=== PATIENT | female | born 1995 | race Caucasian/White ===

== ENCOUNTER 2025-10-10 07:45 | Day surgery (SDC) | payer OTHER, SELFPAY ==
[2025-09-28 09:55] VITALS: BMI 22.8
[2025-10-10] VITALS (12 sets, daily range): BP systolic 105–127; BP diastolic 49–80; PULSE 62–115; RESP 12–20; TEMP 36.4–37; O2SAT 97–100
--- NOTE | 2025-10-10 08:18 | WPDANESEPPF ---
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 [facility] Social History Social History Smoking status: Never smoker Second hand tobacco smoke exposure: Yes Alcohol use details: social Substance use: current Substance use type: marijuana Other substance usage details: daily Living arrangements: with family Spiritual care concerns: No Anes - Eval Final PreProcedure Day of Procedure 10/10/25 08:18 Heart: regular rate and rhythm Lungs: clear to auscultation Airway: Mallampati scale class 1 Neurological: alert and oriented Last oral intake: >/= 8 hours ASA classification: II Anesthetic plan: proceed Anesthesia type and monitoring: general Results Review: All pre-operative results and documents have been reviewed as part of the pre-operative evaluation. Informed Consent: The patient's anesthetic plan and its attendant risks and benefits were discussed with the patient/family/POA. Questions were solicited and answers provided to the satisfaction of the patient/family/POA.
--- OUTSIDE RECORDS SUMMARY | 2025-10-10 08:46 | XMS_ITS | Encounter Summary ---
Author Organization [facility] Address [address] [place] [address] Care Team Providers Care District Associate Judge Name Role Phone Sophia Fermin MD Primary Care Provider [phone]- [phone] Encounter Details Date Type Department Care Team (Late st Contact Info) Description 08/21/2020 Ancillary Orders [facility] O[facility] [place] [address] [facility] [address] [place] [address] Rita Mendez MD [address] 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 Social History Tobacco Use Types Packs/Day Years Used Date Smoking Tobacco: Never Smokeless Tobacco: Never Alcohol Use Standard Drinks/Week Comments No 0 (1 standard drink = 0.6 oz pur e alcohol) Comments Yes Sex and Gender Information Value Date Recorded Sex Assigned at Not on file Legal Sex Female 6:26 AM FABRICATION ENGINEER Gender Identity Not on file Sexual Orientation Not on file Occupation Industry Job Start Date Job End Date Not on file Not on file Not on file Not on file COVID-19 Exposure Response Date Recorded In the last month, have you been in contact with someone who was confirmed or suspected to have Coronavirus / COVID-19? No / Unsure 08/23/2020 9:26 AM FABRICATION ENGINEER documented as of this encounter Plan of Treatment Not on file documented as of this encounter Results * US OB FOLLOW UP PER FETUS (09/25/2020 2:01 PM FABRICATION ENGINEER) Anatomical Region Laterality Modality Pelvis Ultrasound 09/25/2020 1:22 PM FABRICATION ENGINEER Impressions 09/25/2020 10:15 PM FABRICATION ENGINEER IMPRESSION Findings Comment Estimated weight is appropriate for gestational age Narrative 09/25/2020 10:15 PM FABRICATION ENGINEER [place] Follow [facility] Pat. Name: ANAY BALLARD Study Date: 09/25/2020 1:22pm Pat. NO: [id number] Referring MD: RITA MENDEZ Site: 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 Para 1 METHOD Transabdominal ultrasound examination Mckeon . Number of fetuses: 1. DATING LMP on: 01/11/2020 Cycle: regular cycle GA by LMP 36 w + 6 d DE by LMP: 10/17/2020 Ultrasound examination on: 09/25/2020 GA by U/S based upon: AC, BPD, EFW, Femur, HC GA by U/S 36 w + 0 d DE by U/S: 10/23/2020 Method of dating: Restore dating from previous exam Assigned: Dating performed on 08/23/2020, based on the LMP Assigned GA 36 w + 6 d Assigned DE: 10/17/2020 BIOMETRY Main Biometry: BPD 89.5 mm 36w 2d 46% Hadlock OFD 109.1 mm 36w 0d 35% Lata HC 314.6 mm 35w 2d 4% Hadlock AC 326.7 mm 36w 4d 56% Hadlock Femur 69.0 mm 35w 3d 15% Hadlock HC / AC 0.96 20% Nicolaides Weight Calculation: EFW 2,851 g 36w 1d 36% Hadlock EFW (lb,oz) 6 lb 5 oz EFW by Hadlock ([id number]) Head / Face / Neck Biometry: Cephalic index 0.82 54% Nicolaides Extremities / Bony Struc Biometry: FL / BPD 0.77 FL / HC 0.22 FL / AC 0.21 Other Structures Biometry: AF MVP 2.9 cm MELISSA 8.7 cm 9% Burt FHR 144 bpm GENERAL EVALUATION Cardiac activity present. FHR 144 bpm. Presentation cephalic. Placenta anterior. Amniotic fluid MVP 2.9 cm. MELISSA 8.7 cm. Q1 0.0 cm, Q2 2.9 cm, Q3 2.9 cm, Q4 2.9 cm. ANATOMY The following structures appear normal: 4-chamber view. Stomach: Fluid filled stomach identified. Kidneys: Kidneys appear normal bilaterally. Bladder: Fluid filled bladder identified. Gender: male. MATERNAL STRUCTURES Uterus Malformations: Urbano, previously described Procedure Note Jamal Holland II, MD - 09/25/2020 [place] Follow Up Pat. Name:Rudolph BALLARD Date:09/25/2020 1:22pm Pat. 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 Para 1 METHOD Transabdominal ultrasound examination Mckeon . Number of fetuses: 1. DATING LMP on:01/11/2020 Cycle:regular cycle GA by LMP36 w + 6 d DE by LMP:10/17/2020 Ultrasound examination on:09/25/2020 GA by U/S based upon:AC, BPD, EFW, Femur, HC GA by U/S36 w + 0 d DE by U/S:10/23/2020 Method of dating:Restore dating from previous exam Assigned:Dating performed on 08/23/2020, based on the LMP Assigned GA36 w + 6 d Assigned DE:10/17/2020 BIOMETRY Main Biometry: BPD 89.5 mm 36w 2d46% Hadlock OFD 109.1 mm 36w 0d35% Lata HC 314.6 mm 35w 2d 4% Hadlock AC 326.7 mm 36w 4d56% Hadlock Femur 69.0 mm 35w 3d15% Hadlock HC / AC 0.9620% Nicolaides Weight Calculation: EFW 2,851 g 36w 1d36% Hadlock EFW (lb,oz) 6 lb 5 oz EFW by Hadlock ([id number]) Head / Face / Neck Biometry: Cephalic index 0.8254% Nicolaides Extremities / Bony Struc Biometry: FL / BPD 0.77 FL / HC 0.22 FL / AC 0.21 Other Structures Biometry: AF MVP 2.9 cm MELISSA 8.7 cm 9% Burt FHR 144 bpm GENERAL EVALUATION Cardiac activity present. FHR 144 bpm. Presentation cephalic. Placenta anterior. Amniotic fluid MVP 2.9 cm. MELISSA 8.7 cm. Q1 0.0 cm, Q2 2.9 cm, Q3 2.9 cm, Q4 2.9 cm. ANATOMY The following structures appear normal: 4-chamber view. Stomach: Fluid filled stomach identified. Kidneys: Kidneys appear normal bilaterally. Bladder: Fluid filled bladder identified. Gender: male. 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
--- OUTSIDE RECORDS SUMMARY | 2025-10-10 08:46 | XMS_ITS | Encounter Summary ---
Author Organization [facility] Address [address] [place] [address] Care Team Providers Care Nurses' Association Counselor Name Role Phone Sophia Fermin MD Primary Care Provider Encounter Details Date Type Department Care Team (Latest Contact Info) Description 02/14/2003 Outpatient Historical [facility] [place] [address] [address] Andreas Diana MD [address] [address] DERMATITIS NOS (Primary Dx) Social History Tobacco Use Types Packs/Day Years Used Date Smoking Tobacco: Never Assessed Comments Unknown Sex and Gender Information Value Date Recorded Sex Assigned at Not on file Legal Sex Female 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
--- OUTSIDE RECORDS SUMMARY | 2025-10-10 08:46 | XMS_ITS | Encounter Summary ---
Author Organization [facility] Address [address] [place] [address] Care Team Providers Care Natural Gas Basis Trader Name Role Phone Sophia Fermin MD Primary Care Provider [phone]- [phone] Encounter Details Date Type Department Care Team (Latest Contact Info) Description 09/27/2004 Outpatient Historical [facility] [address] [address] Elana Collazo NP NO ADDRESS ON FILE VIRAL ENTERITIS NOS (Primary Dx) Social History Tobacco Use Types Packs/Day Years Used Date Smoking Tobacco: Never Assessed Comments Unknown Sex and Gender Information Value Date Recorded Sex Assigned at Not on file Legal Sex Female 6:26 AM TAX PREPARER Gender Identity Not on file Sexual Orientation Not on file documented as of this encounter Plan of Treatment Not on file documented as of this encounter Visit Diagnoses Diagnosis Intestinal infection due to other organism, not elsewhere classified- Primary documented in this encounter Care Teams Natural Gas Basis Trader Relationship Specialty Start Date End Date Sophia Fermin MD [address] [address] PCP - General Family Practice 12/01/13 documented as of this encounter
--- OUTSIDE RECORDS SUMMARY | 2025-10-10 08:46 | XMS_ITS | Clinical Summary ---
Author Organization [facility] Address [address] [facility] [address] [place] [address] Care Team Providers Care Digital Forensics Examiner Name Role Phone Sophia Fermin MD Primary Care Provider Allergies Active Allergy Reactions Criticality Noted Date Comments Cefadroxil Other (See Comments) 02/20/2010 Makes her hyper as a child Medications vit-iron fumarate-fa (KIT ) 28 mg iron- 800 mcg TabletIndications :Screening, , for malformation by ultrasound,Encoun ter for screening of mother Take 1 Tablet by mouth daily. Active OTHER Double electric breast pump. Use as directed. Dx: z39.1. 1 Device 8 Active Active Problems Problem Noted Date Diagnosed Date Indication for care or intervention in labor or delivery 10/04/2020 Overview (10/04/2020): Labor management (normal spontaneous vaginal delivery) 10/04 Nuchal cord with compression , delivered, current hospitalization 10/04/2020 Laceration of labia majora 10/04/2020 Overview (10/04/2020): Right labia- 1st degree Supervision of normal 03/23/2020 Overview (08/23/2020): Declined flu vaccine 08/23/2020 38 weeks gestation of 03/14/2020 Overview (03/14/2020): Uterus didelphis- preg in right horn Lump of left breast 03/14/2020 S/P laparoscopic surgery 06/26/2017 Uterus didelphys 02/10/2017 Overview (05/29/2020): preg is on the right Migraine 11/14/2011 Overview (02/06/2017): related to her menstrual cycle- when she was on ocp's Seasonal allergic rhinitis 03/08/2011 Menometrorrhagia 04/18/2010 Resolved Problems Problem Noted Date Diagnosed Date Resolved Date Supervision of high risk pre gnancy in first trimester 12/13/2019 02/24/2020 (spontaneous vaginal delivery) 04/26/2018 12/13/2019 Supervision of normal first 03/11/2018 12/13/2019 38 weeks gestation of 03/03/2018 12/13/2019 Anemia affecting in third trimester 03/03/20 18 12/13/2019 28 weeks gestation of 01/28/2018 02/19/2018 09/24/2017 01/28/2018 Bicornuate uterus affecting , antepartum 09/24/2017 12/30/2017 Overview (09/24/2017): Uterus didelphis- preg is on the right Screening, , for ma lformation by ultrasound 09/16/2017 12/13/2019 Encounter for screening of mother 09/16/2017 12/13/2019 Longitudinal vaginal septum 02/10/2017 04/13/2018 Contraceptive management 04/07/2012 Immunizations Immunization Administration Dates Next Due (ADACEL/BOOSTRIX)(10 YR UP) TDAP VACCINE, 0.5ML, IM 02/16/2018,03/07/2011 (M-M-R II/PRIORIX)(12 MO UP) MEASLES, MUMPS AND RUBELLA VIRUS VACCINE, 0.5 ML IM/SUBCUT 06/06/1999,06/18/1995 (TDVAX)(7 YRS UP) TETANUS AN D DIPHTHERIA TOXOIDS, ADSORBED (2 LF OF TETANUS TOXOID AND 2 LF OF DIPHTHERIA TOXOID), 0.5ML (PF), IM 05/09/2006 Dt Dtp Dtap Vaccine 06/06/1999, 6,1994,1993,1994 HIB, Unspecified Formulation 10/17/1995, 1994,1994,1993 Hepatitis B Vaccine 06/18/1995,1994,1993 IPV/OPV 06/06/1999, 5,1994,1993 Influenza Seasonal Unspecifi ed Formulation IM 08/11/2008 Family History Medical History Relation Name Comments Healthy Father Heart Disease Maternal Grandfather Hypertension Maternal Grandfather Other Maternal Grandmother rare mu scle disease Other Mother muscle disease Cancer Paternal Grandfather Breast Cancer Paternal Grandmother Colon Cancer Neg Hx Relation Name Status Comments Father Alive Maternal Grandfather Alive Maternal Grandmother Mother Alive Paternal Grandfather Paternal Grandmother Social History Tobacco Use Types Packs/Day Years Used Date Smoking Tobacco: Never Smokeless Tobacco: Never Alcohol Use Standard Drinks/Week Comments No 0 (1 standard drink = 0.6 oz pur e alcohol) Comments No Sex and Gender Information Value Date Recorded Sex Assigned at Not on file Legal Sex Female 6:26 AM TOOL DESIGN 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 Gender Identity Not on file Sexual Orientation Not on file Occupation Industry Job Start Date Job End Date Not on file Not on file Not on file Not on file Last Filed Vital Signs Vital Sign Reading Time Taken Comments Blood Pressure 100/80 11/14/2020 8:52 AM TOOL DESIGN DRAFTER Pulse 88 10/04/2020 5:31 PM TOOL DESIGN DRAFTER Temperature 36.2 C (97.1 F) 10/04/2020 5:31 PM TOOL DESIGN DRAFTER Respiratory Rate 16 10/04/2020 5:31 PM TOOL DESIGN DRAFTER Oxygen Saturation 98% 10/04/2020 5:31 PM TOOL DESIGN DRAFTER Inhaled Oxygen Concentration - - Weight 68.5 kg (151 lb) 11/14/2020 8:52 AM TOOL DESIGN DRAFTER Height 162.6 cm (5' 4) 11/14/2020 8:52 AM TOOL DESIGN DRAFTER Body Mass Index 25.92 11/14/2020 8:52 AM TOOL DESIGN DRAFTER Plan of Treatment Health Maintenance Due Date Last Done Comments HPV/Cotest (21-29) 06/12/2023 06/12/2018, 0 06/12/2018, 02/07/2017, Additional history exists CERVICAL CANCER SCREENING 2024 HPV/Cotest (30-65) 2024 06/12/2018, 0 06/12/2018, 02/07/2017, Additional history exists PAP SMEAR 2024 03/09/2020, 05/05/2020, 06/12/2018, Additional history exists Preventative Visit- Commercial 10/13/2024 0 02/06/2017, 05/05/2013, 04/07/2012 INFLUENZA VACCINE (#1) 2025 08/11/2008 DTAP/TDAP/TD VACCINES (8 - T d or Tdap) 02/17/2028 02/16/2018, 03/07/2011, 05/09/2006, Additional history exists HEPATITIS B VACCINES Completed 06/18/1995, 1994, 1994 HPV VACCINES (No Doses Required) Completed Procedures Procedure Name Priority Date/Time Associated Diagnosis Comments CERV/VAG CYTO AGE BASED SCREEN PAP W CT/NG Routine 03/09/2020 5:17 PM CDT Uterus didelphys Screening for cervical cancer Screening for STD (sexually transmitted disease) CERV/VAG CYTO SCREEN PAP RLFX HPV Routine 06/12/2018 12:16 PM CDT Uterus didelphys Screening for cervical cancer from Last 3 Months or Most Recently Relevant to Health Maintenance Results * CERV/VAG CYTO AGE BASED SCREEN PAP W CT/NG (03/09/2020 5:17 PM CDT) COMMENT (PAP): SEE COMMENT 0 7:20 AM CDT [facility] Comment: This order for age-based cervical cancer and STI screening follows ACOG guidelines(PB 168, 140, BLK839). See individual assays for performing site location. CLINICAL INFORMATION Routine exam 03/20/2020 7:20 AM CDT [facility] LAST MENSTRUAL PERIOD INFORMATION NOT PROVIDED 03/20/2020 7:20 AM CDT [facility] PREV PAP: INFORMATION NOT PROVIDED 03/20/2020 7:20 AM CDT [facility] PREV BX: INFORMATION NOT PROVIDED 03/20/2020 7:20 AM CDT [facility] SOURCE Left Cervix 03/20/2020 7:20 AM CDT [facility] ADEQUACY: SEE COMMENT 03/20/2020 7:20 AM CDT [facility] Comment: Satisfactory for evaluation. Endocervical/transformation zone component present. PAP INTERP Negative for intraepithelial lesion or malignancy. 03/20/2020 7:20 AM CDT [facility] COMMENT This Pap test has been evaluated with computer assisted technology. 03/20/2020 7:20 AM CDT [facility] SHOP TECHNICIAN: SEE COMMENT 2019 7:20 AM CDT [facility] Comment: MMW, CT(ASCP) CT screening location: [place] [address] [address] [address] EXPLANATORY NOTE SEE COMMENT 020 7:20 AM CDT [facility] Comment: EXPLANATORY NOTE: The Pap is a screening test for cervical cancer. It is not a diagnostic test and is subject to false negative and false positive results. It is most reliable when a satisfactory sample, regularly obtained, is submitted with relevant clinical findings and history, and when the Pap result is evaluated along with historic and current clinical information. Genital (Cervix, left) Collection / Unknown 03/09/2020 5:17 PM CDT 03/15/2020 9:27 AM CDT Narrative [facility] - 03/20/2020 7:20 AM CDT Performing Organization Information: Site ID: [id number] Name: [facility] Address: [address] [place] [address] Director: Goran Zamorano D.O., MPH Site ID: [place] [facility] Address: [address] [address] [id number] Director: Radha Early us Anette Mendez MD PATHOLOGY/CYTOLOGY ORDERAB LES Final Result [facility] [phone] * CERV/VAG CYTO SCREEN PAP RLFX HPV (06/12/2018 12:16 PM CDT) CLINICAL INFORMATION SEE COMMENT 06/18/2018 8:11 AM CDT [facility] Comment:UTERUS DIDELPHYS LEF T LAST MENSTRUAL PERIOD SEE COMMENT 06/18/2018 8:11 AM CDT [facility] Comment:INFORMATION NOT PROV IDED PREV PAP: SEE COMMENT 06/18/2018 8:11 AM CDT [facility] Comment:INFORMATION NOT PROV IDED PREV BX: SEE COMMENT 06/18/2018 8:11 AM CDT [facility] Comment:INFORMATION NOT PROV IDED SOURCE Endocervix 06/18/2018 8:11 AM CDT [facility] ADEQUACY: SEE COMMENT 06/18/2018 8:11 AM CDT [facility] Comment: Satisfactory for evaluation. Endocervical/transformation zone component present. Age and/or menstrual status not provided PAP INTERP SEE COMMENT 06/18/2018 8:11 AM CDT [facility] Comment:Negative for intraep ithelial lesion or malignancy. COMMENT SEE COMMENT 06/18/2018 8:11 AM CDT [facility] Comment: This Pap test has been evaluated with computer assisted technology. SHOP TECHNICIAN: SEE COMMENT 2017 8:11 AM CDT [facility] Comment: KMY, CT(ASCP) CT screening location: [place] [address] [address] [address] EXPLANATORY NOTE SEE COMMENT 018 8:11 AM CDT [facility] Comment: EXPLANATORY NOTE: The Pap is a screening test for cervical cancer. It is not a diagnostic test and is subject to false negative and false positive results. It is most reliable when a satisfactory sample, regularly obtained, is submitted with relevant clinical findings and history, and when the Pap result is evaluated along with historic and current clinical information. Genital SWAB OF ENDOCERVIX / Unknown Collection / Unknown 06/12/2018 12:16 PM CDT 06/12/2018 12:16 PM CDT Narrative [facility] - 06/18/2018 8:11 AM CDT Performing Organization Information: Site ID: [place] Name: [facility] Address: [facility] [address] [phone] Director: Radha Early us Anette Mendez MD PATHOLOGY/CYTOLOGY ORDERAB LES Final Result [facility] from Last 3 Months or Most Recently Relevant to Health Maintenance Insurance [employer](X) EXCHANGE RX MEDIMPACT Member Subscriber Plan / Payer (Ef fective for All Dates) Name:Anay Ballard Relation to Subscriber:Self Name:Anay Ballard Payer ID:Not on file Group ID:[id number] Type:RX Commercial Address: [place], [place] RX A[employer] Commercial Advance Directives For more information, please contact: [phone] * Full Code (Latest Code Status on File) Date Activated Date Inactivated Comments 10/03/2020 7:31 PM 10/04/2020 11:47 PM * Full Code Date Activated Date Inactivated Comments 10/03/2020 9:25 AM 10/03/2020 7:31 PM * Full Code Date Activated Date Inactivated Comments 10/03/2020 5:13 AM 10/03/2020 9:25 AM * Full Code Date Activated Date Inactivated Comments 04/26/2018 5:59 AM 04/28/2018 5:39 PM * Full Code Date Activated Date Inactivated Comments 04/25/2018 6:31 PM 04/26/2018 5:59 AM Care Teams Digital Forensics Examiner Relationship Specialty Start Date End Date Sophia Fermin MD [address] [phone] PCP - General Family Practice 12/01/13
--- OUTSIDE RECORDS SUMMARY | 2025-10-10 08:46 | XMS_ITS | Encounter Summary ---
Author Organization [facility] Address [address] [place] [address] Care Team Providers Care Director Integrated Name Role Phone Sophia Fermin MD Primary Care Provider +1- [phone] Encounter Details Date Type Department Care Team (Latest Contact Info) Description 05/09/2006 Outpatient Historical [facility] Family Medicine- [address] [place] [address] Elana Collazo NP NO ADDRESS ON FILE Unspecified Cardiac Dysrhythmia (Primary Dx); Other General Medical Examination for Administrative Purposes; Need for Prophylactic Vaccination with Tetanus-Diphtheria (TD) Social History Tobacco Use Types Packs/Day Years Used Date Smoking Tobacco: Never Assessed Comments Unknown Sex and Gender Information Value Date Recorded Sex Assigned at Not on file Legal Sex Female 6:26 AM 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
--- OUTSIDE RECORDS SUMMARY | 2025-10-10 08:46 | XMS_ITS | Clinical Summary ---
Author Organization [facility] Address [address] [place] [address] Phone Care Team Providers Care Utility Plant Operative Name Role Phone Sophia Fermin MD Primary Care Provider Allergies Active Allergy Reactions Criticality Noted Date Comments Cefadroxil Other (See Comments) 02/20/2010 Makes her hyper as a child Unclassified Drug Other (See Comments) 06/17/20 17 Unknown cough med made me go bonkers Medications vit-iron fumarate-fa (KIT ) 28 mg iron- 800 mcg Tablet Take 1 Tablet by mouth daily. 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 Lump of left breast 03/14/2020 Longitudinal vaginal septum, 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 S/P laparoscopic surgery 06/26/2017 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/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 right Migraine 11/14/2011 Overview (04/18/2021): related to her menstrual cycle- when she was on ocp's Seasonal allergic rhinitis 03/08/2011 Menometrorrhagia 04/18/2010 Immunizations Immunization Administration Dates Next Due (ADACEL/BOOSTRIX)(10 [...] History Medical History Relation Name Comments Healthy Brother 1 Healthy Brother 2 Healthy Brother 3 Healthy Father Heart Disease Maternal Grandfather Hypertension Maternal Grandfather Other Maternal Grandmother rare mu scle disease Other Mother muscle disease Cancer Paternal Grandfather Breast Cancer Paternal Grandmother Healthy Sister 1 Healthy Sister 2 Colon Cancer Neg Hx Relation Name Status Comments Brother 1 Alive Brother 2 Alive Brother 3 Alive Father Alive Maternal Grandfather Alive Maternal Grandmother Mother Alive Paternal Grandfather Paternal Grandmother Sister 1 Alive Sister 2 Alive Social History Tobacco Use Types Packs/Day Years Used Date Smoking Tobacco: Never Smokeless Tobacco: Never Tobacco Cessation:Counseling Given: No Alcohol Use Standard Drinks/Week Comments No 0 (1 standard drink = 0.6 oz pur e alcohol) Comments Unknown Sex and Gender Information Value Date Recorded Sex Assigned at Not on file Legal Sex Female 2:18 PM TAN ROOM SUPERVISOR Gender Identity Not on file Sexual Orientation Not on file Last Filed Vital Signs Vital Sign Reading Time Taken Comments Blood Pressure 100/80 11/14/2020 8:52 AM TAN ROOM SUPERVISOR Pulse 88 10/04/2020 5:31 PM TAN ROOM SUPERVISOR Temperature 36.2 C (97.1 F) 10/04/2020 5:31 PM TAN ROOM SUPERVISOR Respiratory Rate 16 10/04/2020 5:31 PM TAN ROOM SUPERVISOR Oxygen Saturation 99% 06/26/2017 7:27 AM CDT Inhaled Oxygen Concentration - - Weight 68.5 kg (151 lb) 11/14/2020 8:52 AM TAN ROOM SUPERVISOR Height 162.6 cm (5' 4) 11/14/2020 8:52 AM TAN ROOM SUPERVISOR Body Mass Index 25.92 11/14/2020 8:52 AM TAN ROOM SUPERVISOR Plan of Treatment Health Maintenance Due Date Last Done Comments PAP SMEAR 2024 03/09/2020, 02/11, 03/09/2020, Additional history exists Preventative Visit- Commercial 10/13/2024 0 02/06/2017, 05/05/2013, 04/07/2012 CERVICAL CANCER SCREENING 03/09/2025 HPV/Cotest (21-29) 03/09/2025 03/09/2020, 0 06/12/2018, 06/12/2018, Additional history exists HPV/Cotest (30-65) 03/09/2025 03/09/2020, 0 06/12/2018, 06/12/2018, Additional history exists INFLUENZA VACCINE (#1) 2025 08/11/2008 DTAP/TDAP/TD VACCINES (8 - T d or Tdap) 02/17/2028 02/16/2018, 03/07/2011, 05/09/2006, Additional history exists HEPATITIS B VACCINES Completed 06/18/1995, 1994, 1994 HPV VACCINES (No Doses Required) Completed Procedures Procedure Name Priority Date/Time Associated Diagnosis Comments CERV/VAG CYTO AGE BASED SCREEN PAP W CT/NG Routine 03/09/2020 5:18 PM CDT CERV/VAG CYTO SCREEN PAP RLFX HPV Routine 06/12/2018 12:16 PM CDT from Last 3 Months or Most Recently Relevant to Health Maintenance Results * CERV/VAG CYTO AGE BASED SCREEN PAP W CT/NG (03/09/2020 5:18 PM CDT) COMMENT (PAP): SEE COMMENT 0 10:34 AM CDT [facility] Comment: This order for age-based cervical cancer and STI screening follows ACOG guidelines(PB 168, 140, CFG648). See individual assays for performing site location. CLINICAL INFORMATION Routine exam 03/20/2020 10:34 AM CDT [facility] LAST MENSTRUAL PERIOD INFORMATION NOT PROVIDED 03/20/2020 10:34 AM CDT [facility] PREV PAP: INFORMATION NOT PROVIDED 03/20/2020 10:34 AM CDT [facility] PREV BX: INFORMATION NOT PROVIDED 03/20/2020 10:34 AM CDT [facility] SOURCE Right Cervix 03/20/2020 10:34 AM CDT [facility] ADEQUACY: SEE COMMENT 03/20/2020 10:34 AM CDT [facility] Comment: Satisfactory for evaluation. Endocervical/transformation zone component present. PAP INTERP Negative for intraepithelial lesion or malignancy. 03/20/2020 10:34 AM CDT [facility] COMMENT This Pap test has been evaluated with computer assisted technology. 03/20/2020 10:34 AM CDT [facility] ORE DRESSING ENGINEER: SEE COMMENT 2019 10:34 AM CDT [facility] Comment: MLO, CT(ASCP) CT screening location: [place] [address] [place] [address] EXPLANATORY NOTE SEE COMMENT 020 10:34 AM CDT [facility] Comment: EXPLANATORY NOTE: The Pap is a screening test for cervical cancer. It is not a diagnostic test and is subject to false negative and false positive results. It is most reliable when a satisfactory sample, regularly obtained, is submitted with relevant clinical findings and history, and when the Pap result is evaluated along with historic and current clinical information. Genital (Cervix, right) Collection / Unknown 03/09/2020 5:18 PM CDT 03/17/2020 1:03 AM CDT Narrative [facility] - 03/20/2020 10:34 AM CDT Performing Organization Information: Site ID: [facility]AR[facility] Name: [facility] Address: [address] [address] Director: Goran Zamorano D.O., MPH Site ID: [place] Name: [facility] Address: [address] [place] [address] Director: Radha Early Anette Mendez MD PATHOLOGY/CYTOLOGY ORDERAB LES Final Result [facility] [phone] [facility] [address] * CERV/VAG CYTO SCREEN PAP RLFX HPV (06/12/2018 12:16 PM CDT) CLINICAL INFORMATION SEE COMMENT 06/18/2018 8:11 AM CDT [facility] Comment:UTERUS DIDELPHYS LEF T LAST MENSTRUAL PERIOD SEE COMMENT 06/18/2018 8:11 AM CDT [facility] Comment:INFORMATION NOT PROV IDED PREV PAP: SEE COMMENT 06/18/2018 8:11 AM CDT [facility] Comment:INFORMATION NOT PROV IDED PREV BX: SEE COMMENT 06/18/2018 8:11 AM CDT [facility] Comment:INFORMATION NOT PROV IDED SOURCE Endocervix 06/18/2018 8:11 AM CDT [facility] ADEQUACY: SEE COMMENT 06/18/2018 8:11 AM CDT [facility] Comment: Satisfactory for evaluation. Endocervical/transformation zone component present. Age and/or menstrual status not provided PAP INTERP SEE COMMENT 06/18/2018 8:11 AM CDT [facility] Comment:Negative for intraep ithelial lesion or malignancy. COMMENT SEE COMMENT 06/18/2018 8:11 AM CDT [facility] Comment: This Pap test has been evaluated with computer assisted technology. ORE DRESSING ENGINEER: SEE COMMENT 2017 8:11 AM CDT [facility] Comment: NALINI HOGAN(ASCP) CT screening location: [place] [address] [place] [address] EXPLANATORY NOTE SEE COMMENT 018 8:11 AM CDT [facility] Comment: EXPLANATORY NOTE: The Pap is a [...] Collection / Unknown 06/12/2018 12:16 PM CDT 06/16/2018 6:33 AM CDT Narrative [facility] - 06/18/2018 8:11 AM CDT Performing Organization Information: Site ID: Name: [facility] Address: [facility] [place] [address] Director: Radha Early Anette Mendez MD PATHOLOGY/CYTOLOGY ORDERAB LES Final Result [facility] from Last 3 Months or Most Recently Relevant to Health Maintenance Insurance RX [employer] RX Member Subscriber Plan / Payer (Ef fective for All Dates) Name:Anay Ballard Relation to Subscriber:Child Name:Anay Ballard Payer ID:Not on file Type:RX LDI Address: [place], [place] RX MEDIM[employer]CT Member Subscriber Plan / Payer (Ef fective for All Dates) Name:Anay Ballard Relation to Subscriber:Self Name:Anay Ballard Payer ID:Not on file Group ID:[id number] Type:RX Commercial Address: [place] RX [employer] Commercial Advance Directives For more information, please contact: [phone] * Full Code (Latest Code Status on File) Date Activated Date Inactivated Comments 06/25/2017 3:03 PM 06/26/2017 1:54 PM * Full Code Date Activated Date Inactivated Comments 06/25/2017 10:22 AM 06/25/2017 3:03 PM Care Teams Utility Plant Operative Relationship Specialty Start Date End Date Sophia Fermin MD [address] [facility] [address] [place] [id number] PCP - General Family Practice 12/01/13
--- OUTSIDE RECORDS SUMMARY | 2025-10-10 08:46 | XMS_ITS | Encounter Summary ---
Author Organization [facility] Address [address] [place] [address] Care Team Providers Care Concrete Conveyor Operator Name Role Phone Sophia Fermin MD Primary Care Provider [phone]- [phone] Encounter Details Date Type Department Care Team (Latest Contact Info) Description 04/18/2006 Outpatient Historical [facility]- [place] [address] [place] [phone] Elana Collazo NP NO ADDRESS ON FILE Other and Unspecified Noninfectious Gastroenteritis and Colitis (Primary Dx); Unspecified Infective Otitis Externa; Fever Social History Tobacco Use Types Packs/Day Years Used Date Smoking Tobacco: Never Assessed Comments Unknown Sex and Gender Information Value Date Recorded Sex Assigned at Not on file Legal Sex Female 6:26 AM SHELLFISH HARVESTER Gender Identity Not on file Sexual Orientation Not on file documented as of this encounter Plan of Treatment Not on file documented as of this encounter Visit Diagnoses Diagnosis Other and unspecified noninfectious gastroenteritis and colitis(558.9)- Primary Other and unspecified noninfectious gastroenteritis and colitis Infective otitis externa, unspecified Fever and other physiologic disturbances of temperature regulation documented in this encounter Care Teams Concrete Conveyor Operator Relationship Specialty Start Date End Date Sophia Fermin MD [address] [place] [phone] PCP - General Family Practice 12/01/13 documented as of this encounter
--- OUTSIDE RECORDS SUMMARY | 2025-10-10 08:46 | XMS_ITS | Encounter Summary ---
Author Organization [facility] Address [address] [place] [address] Care Team Providers Care Housekeeping Laundry Worker Name Role Phone Sophia Fermin MD Primary Care Provider [phone]- [phone] Reason for Referral * Radiology Services (Urgent) - Closed Specialty Diagnoses / Procedures Referred By Marques t Referred To Contact Radiology Diagnoses Confirm cardiac activity using ultrasound Uterus didelphys Procedures US OB LESS THAN 14 WKS SINGLE + TRANSVAG US OB LESS THAN 14 WKS SINGLE GEST CHG US, OB < 14 WKS, SINGLE FETUS CHG US, UTERUS,TRANSVAGINAL Anette Mendez MD Phone: tel: fax: [phone]ound [address] [place] [address] Phone: tel: fax: Referral ID Status Reason Start Date Expiration Date Visits Requested Visits Authorized [id number] Closed Interventional Scheduling (SGF) 12/13/2019 01/12/2021 1 1 OMS INSPECTOR Encounter Details Date Type Department Care Team (Late st Contact Info) Description 12/13/2019 Ancillary Orders [facility] O[facility] [place] [address] [place] [phone] Anette Mendez MD [address] [facility] [address] [place] [address] Confirm cardiac activity using ultrasound; Uterus didelphys Social History Tobacco Use Types Packs/Day Years Used Date Smoking Tobacco: Never Smokeless Tobacco: Never Alcohol Use Standard Drinks/Week Comments No 0 (1 standard drink = 0.6 oz pur e alcohol) Comments Yes Sex and Gender Information Value Date Recorded Sex Assigned at Not on file Legal Sex Female 6:26 AM CUSTOMS INSPECTOR Gender Identity Not on file Sexual Orientation Not on file Occupation Industry Job Start Date Job End Date Not on file Not on file Not on file Not on file documented as of this encounter Plan of Treatment Not on file documented as of this encounter Results * US OB LESS THAN 14 WKS SINGLE + TRANSVAG (12/13/2019 5:39 PM CUSTOMS INSPECTOR) Anatomical Region Laterality Modality Pelvis Ultrasound Study GA Study Date Study DE Working DE (Source) 12/13/2019 08/12/2020 (Last Menstrua l Period) Fetus A Measurements Value GA (days) CRL ([place]) Sac Diameter FHR 12/13/2019 5:39 PM CUSTOMS INSPECTOR Impressions 12/13/2019 5:45 PM CUSTOMS INSPECTOR Impression: No evidence of intrauterine or ectopic gestational sac. These findings could represent early , missed , or undiagnosed ectopic . Correlation with serial beta-hCG is recommended. If beta hCG increases, a repeat ultrasound is recommended. Uterine didelphys Narrative 12/13/2019 5:45 PM CUSTOMS INSPECTOR LMP: 11/06/2019. Beta-hCG: Unknown Comparison: None TECHNIQUE: Transabdominal sonography of the pelvis was performed, followed by transvaginal sonography to better evaluate the uterus and ovaries. FINDINGS: UTERUS and GESTATIONAL SAC No gestational sac is identified. There is a suspected uterine didelphys with 2 uterine horns and 2 cervices. The endometrial stripe measures approximately 10 mm in each uterine horn. OVARIES Right ovary: Normal. Left ovary: Normal. FREE FLUID None. Procedure Note Tanner Manzo MD - 12/13/2019 LMP: 11/06/2019. Beta-hCG: Unknown Comparison: None TECHNIQUE: Transabdominal sonography of the pelvis was performed, followed by transvaginal sonography to better evaluate the uterus and ovaries. FINDINGS: UTERUS and GESTATIONAL SAC No gestational sac is identified. There is a suspected uterine didelphys with 2 uterine horns and 2 cervices. The endometrial stripe measures approximately 10 mm in each uterine horn. OVARIES Right ovary: Normal. Left ovary: Normal. FREE FLUID None. Impression: No evidence of intrauterine or ectopic gestational sac. These findings could represent early , missed , or undiagnosed ectopic . Correlation with serial beta-hCG is recommended. If beta hCG increases, a repeat ultrasound is recommended. Uterine didelphys us Anette Mendez MD US ORDERABLES Final Resu lt documented in this encounter Visit Diagnoses Diagnosis Confirm cardiac activity using ultrasound Encounter for routine screening for malformation using ultrasonics Uterus didelphys Congenital doubling of uterus Confirm cardiac activity using ultrasound Encounter for routine screening for malformation using ultrasonics Uterus didelphys Congenital doubling of uterus documented in this encounter Care Teams Housekeeping Laundry Worker Relationship Specialty Start Date End Date Sophia Fermin MD [address] [address] PCP - General Family Practice 12/01/13 documented as of this encounter
--- OUTSIDE RECORDS SUMMARY | 2025-10-10 08:46 | XMS_ITS | Encounter Summary ---
Author Organization [facility] Address [address] [place] [address] Care Team Providers Care Restaurant Cook Name Role Phone Sophia Fermin MD Primary Care Provider [phone]- [phone] Encounter Details Date Type Department Care Team (Latest Contact Info) Description 10/11/2004 Outpatient Historical [facility] Family Medicine [place] [address] [address] Elana Collazo NP NO ADDRESS ON FILE ACUTE SINUSITIS NOS (Primary Dx) Social History Tobacco Use Types Packs/Day Years Used Date Smoking Tobacco: Never Assessed Comments Unknown Sex and Gender Information Value Date Recorded Sex Assigned at Not on file Legal Sex Female 6:26 AM BEHAVIORAL MEDICAL DIRECTOR Gender Identity Not on file Sexual Orientation Not on file documented as of this encounter Plan of Treatment Not on file documented as of this encounter Visit Diagnoses Diagnosis Acute sinusitis, unspecified- Primary documented in this encounter Care Teams Restaurant Cook Relationship Specialty Start Date End Date Sophia Fermin MD [address] [address] PCP - General Family Practice 12/01/13 documented as of this encounter
--- OUTSIDE RECORDS SUMMARY | 2025-10-10 08:46 | XMS_ITS | Encounter Summary ---
Author Organization [facility] Address [address] [place] [address] Care Team Providers Care Striker Off Name Role Phone Sophia Fermin MD Primary Care Provider [phone]- [phone] Encounter Details Date Type Department Care Team (Latest Contact Info) Description 07/25/[address] [facility] Family Medicine [place] [address] [address] Elana Collazo NP NO ADDRESS ON FILE Dermatitis due to plant (Primary Dx) Social History Tobacco Use Types Packs/Day Years Used Date Smoking Tobacco: Never Assessed Comments Unknown Sex and Gender Information Value Date Recorded Sex Assigned at Not on file Legal Sex Female 6:26 AM CORE DRILL OPERATOR Gender Identity Not on file Sexual Orientation Not on file documented as of this encounter Plan of Treatment Not on file documented as of this encounter Visit Diagnoses Diagnosis Dermatitis due to plant- Primary Contact dermatitis and other eczema due to plants (except food) documented in this encounter Care Teams Striker Off Relationship Specialty Start Date End Date Sophia Fermin MD [address] [address] PCP - General Family Practice 12/01/13 documented as of this encounter
--- OUTSIDE RECORDS SUMMARY | 2025-10-10 08:46 | XMS_ITS | Encounter Summary ---
Author Organization [facility] Address [address] [place] [address] Care Team Providers Care Skein Drier Name Role Phone Sophia Fermin MD Primary Care Provider +1- [phone] Reason for Referral * Outpatient Services (Routine) - Closed Specialty Diagnoses / Procedures Referred By Marques smith Referred To Contact Perinatology Diagnoses Uterus didelphys Procedures US OB FOLLOW UP PER FETUS Anette Mendez MD Phone: tel: fax: [facility] [place] [address] Phone: tel: fax: Referral ID Status Reason Start Date Expiration Date Visits Re quested Visits Authorized [id number] Closed 12/29/2017 01/29/2019 1 1 Encounter Details Date Type Department Care Team (Late st Contact Info) Description 12/29/2017 Ancillary Orders [facility] OBGYN-[address] [place] [address] Anette Mendez MD [address] [facility] Entrance, Jose Alfredo [address] [place] [address] Uterus didelphys Social History Tobacco Use Types Packs/Day Years Used Date Smoking Tobacco: Never Smokeless Tobacco: Never Alcohol Use Standard Drinks/Week Comments No 0 (1 standard drink = 0.6 oz pur e alcohol) Comments Yes Sex and Gender Information Value Date Recorded Sex Assigned at Not on file Legal Sex Female 6:26 AM ADMINISTRATOR OF HOME HEALTH Gender Identity Not on file Sexual Orientation [...] * US OB FOLLOW UP PER FETUS (02/16/2018 1:14 PM CDT) Anatomical Region Laterality Modality Pelvis Ultrasound 02/16/2018 12:4 7 PM CDT Impressions 02/17/2018 3:54 PM T IMPRESSION Findings Comment Estimated weight is appropriate for gestational age Uterine anomaly Narrative 02/17/2018 3:54 PM T [place] Follow Up Pat. Name: ANAY BALLARD Study Date: 02/16/2018 12:47pm Pat. NO: [id number] Referring MD: FREDDY PISANO Site: [facility] Nba Player: Isabela Hinojosa RDMS : 1995 Age: 22 INDICATION Other Condition Uterus didelphys [Q51.2 (ICD-10-CM)] CODING Diagnosis XXX.10: Other condition. Z3A.28: Weeks Gestation of . Procedures 97148: OB US Follow-up. HISTORY OB History : 0. Para: 0. METHOD Transabdominal ultrasound examination. [place]ke[place] . Number of fetuses: 1. DATING LMP on: 08/02/2017 GA by LMP 28 w + 2 d DE by LMP: 05/09/2018 Ultrasound examination on: 02/16/2018 GA by U/S based upon: AC, BPD, EFW, Femur, HC GA by U/S 29 w + 1 d DE by U/S: 05/03/2018 Method of dating: Restore dating from previous exam Assigned: Dating performed on 12/30/2017, based on the LMP Assigned GA 28 w + 2 d Assigned DE: 05/09/2018 BIOMETRY Main Biometry: BPD 73.5 mm 76% 29w 3d Hadlock OFD 94.2 mm 93% 30w 3d Lata HC 269.4 mm 52% 29w 3d Hadlock AC 247.3 mm 64% 29w 0d Hadlock Femur 55.8 mm 67% 29w 3d Hadlock Weight Calculation: EFW 1,348 g 70% 28w 6d Hadlock EFW (lb,oz) 3 lb 0 oz Calculated by Lilo ([id number]) Proportionality Ratios: Cephalic index 0.78 41% Nicolaides HC / AC 1.09 46% Nicolaides FL / BPD 0.76 FL / AC 0.23 Head / Face / Neck Biometry: Catalyst Operator 7.7 mm GENERAL EVALUATION Cardiac activity: present. FHR 149 bpm. Presentation: cephalic. Placenta: posterior, fundal. Amniotic fluid: MVP 7.4 cm. MELISSA 18.9 cm. Q1 2.6 cm, Q2 7.4 cm, Q3 3.5 cm, Q4 5.4 cm. ANATOMY The following structures were visualized with normal appearance: Brain Lateral cerebral ventricles. Heart Four chamber view: 3VV, normal. Stomach Fluid filled stomach identifed. Kidneys Kidneys appear normal bilaterally. Bladder Fluid filled bladder identified. The following structures could not be visualized: Heart 3-vessel - trachea view. Gender: female. MATERNAL STRUCTURES Uterus Abnormal. Appearance: didelphys. Procedure Note Jamal Holland II, MD - 02/17/2018 [place] Follow Up Pat. Name:Rudolph BALLARD Date:02/16/2018 12:47pm Pat. 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 Z3A.28: Weeks Gestation of . Procedures 23613: OB US Follow-up. HISTORY OB History : 0. Para: 0. METHOD Transabdominal ultrasound examination. Mckeon . Number of fetuses: 1. DATING LMP on:08/02/2017 GA by [email or web address] w + 2 d DE by LMP:05/09/2018 Ultrasound examination on:02/16/2018 GA by U/S based upon:AC, BPD, EFW, Femur, HC GA by U/S29 w + 1 d DE by U/S:05/03/2018 Method of dating:Restore dating from previous exam Assigned:Dating performed on 12/30/2017, based on the LMP Assigned GA28 w + 2 d Assigned DE:05/09/2018 BIOMETRY Main Biometry: BPD 73.5 mm 76% 29w 3d Hadlock OFD 94.2 mm 93% 30w 3d Lata HC 269.4 mm 52% 29w 3d Hadlock AC 247.3 mm 64% 29w 0d Hadlock Femur 55.8 mm 67% 29w 3d Hadlock Weight Calculation: EFW 1,348 g 70% 28w 6d Hadlock EFW (lb,oz) 3 lb 0 oz Calculated by Lilo ([id number]) Proportionality Ratios: Cephalic index 0.78 41% Nicolaides HC / AC 1.09 46% Nicolaides FL / BPD 0.76 FL / AC 0.23 Head / Face / Neck Biometry: Catalyst Operator 7.7 mm GENERAL EVALUATION Cardiac activity: present. FHR 149 bpm. Presentation: cephalic. Placenta: posterior, fundal. Amniotic fluid: MVP 7.4 cm. MELISSA 18.9 cm. Q1 2.6 cm, Q2 7.4 cm, Q3 3.5 cm, Q4 5.4 cm. ANATOMY The following structures were visualized with normal appearance: Brain Lateral cerebral ventricles. Heart Four chamber view: 3VV, normal. Stomach Fluid filled stomach identifed. Kidneys Kidneys appear normal bilaterally. Bladder Fluid filled bladder identified. The following structures could not be visualized: Heart 3-vessel - trachea view. Gender: female. MATERNAL STRUCTURES Uterus Abnormal. Appearance: didelphys. 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
--- OUTSIDE RECORDS SUMMARY | 2025-10-10 08:46 | XMS_ITS | Encounter Summary ---
Author Organization [facility] Address [address] [place] [address] Care Team Providers Care Calculating Machine Mechanic Name Role Phone Sophia Fermin MD Primary Care Provider +1- [phone] Encounter Details Date Type Department Care Team (Latest Contact Info) Description 01/16/1999 Outpatient Historical [facility] Ear, Nose and Throat [place] 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
--- OUTSIDE RECORDS SUMMARY | 2025-10-10 08:46 | XMS_ITS | Encounter Summary ---
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 Social History Tobacco Use Types Packs/Day Years Used Date Smoking Tobacco: Never Smokeless Tobacco: Never Alcohol Use Standard Drinks/Week Comments No 0 (1 standard drink = 0.6 oz pur e alcohol) Comments Yes Sex and Gender Information Value Date Recorded Sex Assigned at Not on file Legal Sex Female 6:26 AM BENEFITS COUNSELOR Gender Identity Not on file Sexual Orientation Not on file Occupation Industry Job Start Date Job End Date Not on file Not on file Not on file Not on file COVID-19 Exposure Response Date Recorded In the last month, have you been in contact with someone who was confirmed or suspected to have Coronavirus / COVID-19? No / Unsure 08/23/2020 9:26 AM BENEFITS COUNSELOR documented as of this encounter Plan of Treatment Not on file documented as of this encounter Results * US OB FOLLOW UP PER FETUS (08/23/2020 10:50 AM BENEFITS COUNSELOR) Anatomical Region Laterality Modality Pelvis Ultrasound 08/23/2020 9:50 AM BENEFITS COUNSELOR Impressions 08/23/2020 12:47 PM BENEFITS COUNSELOR IMPRESSION Findings Comment Estimated weight is appropriate for gestational age Narrative 08/23/2020 12:47 PM BENEFITS COUNSELOR [place] Follow Up Pat. Name: ANAY BALLARD Study Date: 08/23/2020 9:50am Pat. 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 Para 1 METHOD Transabdominal ultrasound examination Mc[place] . Number of fetuses: 1. DATING Method of dating: based on the LMP LMP on: 01/11/2020 Cycle: regular cycle GA by LMP 32 w + 1 d DE by LMP: 10/17/2020 Ultrasound examination on: 08/23/2020 GA by U/S based upon: AC, BPD, EFW, Femur, HC GA by U/S 31 w + 6 d DE by U/S: 10/19/2020 Assigned: Dating performed on 08/23/2020, based on the LMP Assigned GA 32 w + 1 d Assigned DE: 10/17/2020 BIOMETRY Main Biometry: BPD 82.9 mm 33w 2d 77% Hadlock OFD 105.3 mm 34w 5d 92% Lata HC 301.5 mm 33w 3d 48% Hadlock AC 270.5 mm 31w 1d 21% Hadlock Femur 58.2 mm 30w 3d 5% Hadlock HC / AC 1.11 79% Nicolaides Weight Calculation: EFW 1,743 g 31w 0d 18% Hadlock EFW (lb,oz) 3 lb 13 oz EFW by Hadlock ([id number]) Head / Face / Neck Biometry: Cephalic index 0.79 38% Nicolaides [employer] Commanding Officer 5.1 mm Extremities / Bony Struc Biometry: FL / BPD 0.70 FL / HC 0.19 FL / AC 0.22 Other Structures Biometry: AF MVP 5.4 cm MELISSA 12.4 cm 29% Burt FHR 145 bpm GENERAL EVALUATION Cardiac activity present. FHR 145 bpm. Presentation cephalic. Placenta anterior. Amniotic fluid MVP 5.4 cm. MELISSA 12.4 cm. Q1 5.4 cm, Q2 2.8 cm, Q3 3.6 cm, Q4 0.6 cm. ANATOMY The following structures appear normal: 4-chamber view. Stomach: Fluid filled stomach identified. Kidneys: Kidneys appear normal bilaterally. Bladder: Fluid filled bladder identified. Procedure Note Jamal Holland II, MD - 08/23/2020 [place] Follow Up Pat. Name:Rudolph BALLARD Date:08/23/2020 9:50am Pat. 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 Para 1 METHOD Transabdominal ultrasound examination [place] . Number of fetuses: 1. DATING Method of dating:based on the LMP LMP on:01/11/2020 Cycle:regular cycle GA by [id number] w + 1 d DE by LMP:10/17/2020 Ultrasound examination on:08/23/2020 GA by U/S based upon:AC, BPD, EFW, Femur, HC GA by U/S31 w + 6 d DE by U/S:10/19/2020 Assigned:Dating performed on 08/23/2020, based on the LMP Assigned GA32 w + 1 d Assigned DE:10/17/2020 BIOMETRY Main Biometry: BPD 82.9 mm 33w 2d77% Hadlock OFD 105.3 mm 34w 5d92% Lata HC 301.5 mm 33w 3d48% Hadlock AC 270.5 mm 31w 1d21% Hadlock Femur 58.2 mm 30w 3d 5% Hadlock HC / AC 1.1179% Nicolaides Weight Calculation: EFW 1,743 g 31w 0d18% Hadlock EFW (lb,oz) 3 lb 13 oz EFW by Hadlock ([id number]) Head / Face / Neck Biometry: Cephalic index 0.7938% Nicolaides Homicide Squad Commanding Officer 5.1 mm Extremities / Bony Struc Biometry: FL / BPD 0.70 FL / HC 0.19 FL / AC 0.22 Other Structures Biometry: AF MVP 5.4 cm MELISSA 12.4 cm29% Burt FHR 145 bpm GENERAL EVALUATION Cardiac activity present. FHR 145 bpm. Presentation cephalic. Placenta anterior. Amniotic fluid MVP 5.4 cm. MELISSA 12.4 cm. Q1 5.4 cm, Q2 2.8 cm, Q3 3.6 cm,Q4 0.6 cm. ANATOMY The following structures appear normal: 4-chamber view. Stomach: Fluid filled stomach identified. Kidneys: Kidneys appear normal bilaterally. Bladder: Fluid filled bladder identified. 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
--- OUTSIDE RECORDS SUMMARY | 2025-10-10 08:46 | XMS_ITS | Encounter Summary ---
Author Organization [facility] Address [address] [place] [address] Care Team Providers Care Grommet Machine Operator Name Role Phone Sophia Fermin MD Primary Care Provider +1- [phone] Encounter Details Date Type Department Care Team (Latest Contact Info) Description 12/20/1998 Outpatient Historical [facility] Ear, Nose and Throat [address] [place] 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 Gender Identity Not on file Sexual Orientation Not on file documented as of this encounter Plan of Treatment Not on file documented as of this encounter Visit Diagnoses Diagnosis Dysfunct eustachian tube- Primary Dysfunction of Eustachian tube Hypertrophy adenoids Hypertrophy of adenoids alone Hypertrophy tonsils Hypertrophy of tonsils alone documented in this encounter Care Teams Grommet Machine Operator Relationship Specialty Start Date End Date Sophia Fermin MD [address] [facility] [address] [place] [phone] PCP - General Family Practice 12/01/13 documented as of this encounter
--- OUTSIDE RECORDS SUMMARY | 2025-10-10 08:46 | XMS_ITS | Encounter Summary ---
Author Organization [facility] Address [address] [place] [address] Care Team Providers Care Sewing Machine Operator Zipper Name Role Phone Sophia Fermin MD Primary Care Provider +1- [phone] Encounter Details Date Type Department Care Team (Latest Contact Info) Description 11/03/2006 Outpatient Historical [facility] [place] [address] [phone] Elana Collazo NP NO ADDRESS ON FILE Unspecified Otitis Media (Primary Dx); Acute Pharyngitis Social History Tobacco Use Types Packs/Day Years Used Date Smoking Tobacco: Never Assessed Comments Unknown Sex and Gender Information Value Date Recorded Sex Assigned at Not on file Legal Sex Female 6:26 AM 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
--- OUTSIDE RECORDS SUMMARY | 2025-10-10 08:46 | XMS_ITS | Encounter Summary ---
Author Organization [facility] Address [address] [place] [address] Care Team Providers Care Academic Vice President Name Role Phone Sophia Fermin MD Primary Care Provider +1- [phone] Encounter Details Date Type Department Care Team (Latest Contact Info) Description 02/05/1999 Outpatient Historical [facility] Ear, Nose and Throat [address] [place] 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
[2025-10-10] MEDS: LACTATED RINGERS 1,000 ML 30 ML IV CONT ×3 (09:06→15:00)
[2025-10-10] MEDS: TRANEXAMIC ACID 1,000 MG/10 ML AMPUL 1000 MG IV PUSH (09:07)
--- NOTE | 2025-10-10 10:16 | WPDHPUPDATE1 ---
History and Physical Update Update Date/Time: 10/10/25 10:16 History and Physical has been reviewed, including an updated exam of the patient. There are NO changes in the patient's condition. Risks, benefits, and alternatives have been discussed and questions answered. Patient agrees to proceed with procedure.
--- NOTE | 2025-10-10 10:17 | W.PM.PROC2 ---
Procedure Note - Detailed Date of Procedure 10/10/25 Pre-op Diagnosis Micromastia and Breast Ptosis Post-op Diagnosis Same Procedure Performed Bilateral augmentation mastopexy Surgeon Tanner Egan MD Anesthesia General Findings Inverted T Superior medial pedicle Bilateral Pinky Schwab SoftTouch 310cc Subfascial Right: REF# [id number] SN [id number] Left: REF# [id number] SN [id number] Description of Procedure She is here today for bilateral breast augmentation mastopexy. Previously and again today the risks, benefits, alternatives were discussed in extensive detail. I wanted her to be very realistic about the risks involved as well as expectations. We discussed aftercare and what to monitor for. Made sure answered all of her questions to her satisfaction today and consent was obtained. Marked in the preoperative holding area with their verification. The patient was taken to the operating room placed supine on the operating table. Anesthesia was provided by anesthesiology. A surgical time-out was taken. 1% lidocaine and 0.25% Marcaine with epinephrine was used to anesthetize as a field block. She was prepped and draped in a standard sterile fashion. Tegaderm nipple Dawson were placed. A 15 blade used to make an incision just superior to the inframammary fold leaving a cusp of de-epithelized tissue at the t junction. Dissection was continued until the chest wall as identified. I elevated a subfascial pocket in the appropriate dimensions based on our preoperative planning for the implant. I then copiously irrigated with saline solution and verified a strict hemostasis. Next the use a triple antibiotic and Betadine containing solution to irrigate the pocket. I washed my gloves with the triple antibiotic and Betadine solution. We washed the implant immediately upon opening it with this solution and only opened it when we needed it. I used implant funnel and no-touch technique. The implant was introduced into the pocket using the funnel. Having verified positioning of the implant this was closed using 2-0 PDS. I tailor tacked the breast into position. Placed her in a sitting position. Verified the nipple-areolar location based on preoperative planning as well as intraoperative observations and measurements in full agreement. She was placed supine. I de-epithelialized the pedicle. I then removed the inferior central portion of the breast need making sure the implant was well protected. I elevated medial and lateral tissue flaps as well for planned closure. Secured the IMF with 2-0 PDS. I closed along the IMF with 2-0 PDS. Along the vertical with 2-0 PDS. I closed around the areola and the vertical incision with 3-0 Monocryl. 3-0 Stratafix along the IMF. I finally closed everything with running subcuticular 4-0 Monocryl and tissue glue with brijjits along the vertical incison. Fluffs and surgical bra were placed. Estimated Blood Loss 40 Drains No Packing No Pathology None sent Complications No immediate complications Condition Stable Disposition PACU
[2025-10-10] MEDS: ceFAZolin SODIUM 2 GM/20 ML SW SYRINGE IV PUSH (10:28)
[2025-10-10] MEDS: GENTAMICIN SULFATE INJ 80 MG/2 ML VIAL 160 MG (10:57)
[2025-10-10] MEDS: LIDO 1%/EPINEPHRINE 1:100,000 20 ML VIAL 40 ML (10:59)
[2025-10-10] MEDS: fentaNYL CITRATE INJ (*CRX) 100 MCG/2 ML VIAL 25 MCG IV PUSH ×4 (13:30→13:47)
[2025-10-10] MEDS: ONDANSETRON INJ 4 MG/2 ML VIAL IV PUSH (14:13)
[2025-10-10] MEDS: PROMETHAZINE HCL 25 MG/ML AMPUL 6.25 MG IM (15:12)
[2025-10-10] MEDS: oxyCODONE HCL (*CRX) 5 MG TAB IR PO (15:52)
== END 2025-10-10 15:59 | disposition home or self-care (01) ==
PROVIDERS: Visit Provider Surgery Plastic and Reconstructive Surgery
PROC: (CPT 19325; principal; 2025-10-10 10:15)
PROC: (CPT 19316; 2025-10-10 10:15)
DX: Z41.1 Encounter for cosmetic surgery (principal); N64.82 Hypoplasia of breast; N64.81 Ptosis of breast
CPT/HCPCS: 19325; 19316; J3290